=== PATIENT | female | born 1995 | race Caucasian/White ===

== ENCOUNTER 2018-07-06 17:18 | Emergency (ER) | payer OTHER ==
[~2018-07-06] VITALS: Ht 165.1 cm; Wt 74.8 kg
== END 2018-07-06 19:58 | disposition home or self-care (01) ==
LOC: ER 17:18
DX: S30.1XXA Contusion of abdominal wall, initial encounter (principal); V43.02XA Car driver injured in collision with other type car in nontraffic accident, initial encounter; Y93.89 Activity, other specified; Y92.488 Other paved roadways as the place of occurrence of the external cause; Y99.8 Other external cause status; Z04.1 Encounter for examination and observation following transport accident

== ENCOUNTER 2018-08-30 13:17 | Outpatient (CLI) | payer OTHER | END 2018-08-31 06:47 | disposition home or self-care (01) | LOC: OBS/DEL 13:17 | DX: O26.892 Other specified pregnancy related conditions, second trimester (principal); G43.809 Other migraine, not intractable, without status migrainosus; Z34.02 Encounter for supervision of normal first pregnancy, second trimester ==

== ENCOUNTER 2018-11-23 14:22 | Inpatient (IN) | payer OTHER ==
[~2018-11-23] VITALS: Ht 160 cm; Wt 3.2 kg
[2018-11-23] MEDS ORDERED: PRENATAL TABLE1 EAC1 PO (15:31)
== END 2018-11-28 15:47 | disposition home or self-care (01) | DRG 788 ==
LOC: LDR 14:22 → OB/GYN 14:22 → LDR 19:54 → OB/GYN 11-24 19:43
PROVIDERS: ADMIT Obstetrics & Gynecology
PROC: 4A1HXCZ Monitoring of Products of Conception, Cardiac Rate, External Approach (ICD-10-PCS; 2018-11-23)
PROC: 3E033VJ Introduction of Other Hormone into Peripheral Vein, Percutaneous Approach (ICD-10-PCS; 2018-11-24)
PROC: 10D00Z1 Extraction of Products of Conception, Low, Open Approach (ICD-10-PCS; principal; 2018-11-24 16:00)
DX: O61.0 Failed medical induction of labor (principal); O62.1 Secondary uterine inertia; Z3A.39 39 weeks gestation of pregnancy; Z37.0 Single live birth